=== PATIENT | female | born 1970 | race African-American/Black ===

== ENCOUNTER 2016-08-20 11:46 | Emergency (ER) | payer MEDICAID ==
[~2016-08-20 11:46] MED LIST: ALLERGY RELIEF10 M7 PO; ARTHRITIS PO; DULCOLAX10 MG/SUPP RC; ERITROGEN TABLE1 TAB PO; FEROSUL325 M1 PO; FLEXERIL10 MG PO; FLUOXETINE HCL20 M2 PO; FOLIC ACID1 M1 PO; HYDROXYCHLOROQ200 M2 PO; IBUPROFEN200 M3 PO; METHOTREXATE2.5 M1 PO; MOTRIN600 MG PO; NEURONTIN300 M1 PO; NON ADHERENT P1 EACH TP; PEPCID20 MG PO; PHENERGAN W/CO120 ML PO; PREDNISONE2.5 M1 PO; PRENATAL1 EACH PO; PRENATAL1 TAB; SURFAK240 MG PO; TYLENOL W/CODEI1 TA PO; VICODIN 5/500 T1 TAB PO; ZOFRAN4 M2 PO; ZOFRAN4 MG PO; [UNRECOGNIZED DRUG - REMARK]; [UNRECOGNIZED DRUG - REMARK]
[2016-08-20] MEDS ORDERED: NORCO 5-325 TA1 EACH PO (12:11)
== END 2016-08-20 12:28 ==
LOC: EDMED 11:46
DX: K08.89 Other specified disorders of teeth and supporting structures (principal)